=== PATIENT | male | born 1980 | race African-American/Black ===

== ENCOUNTER 2016-09-10 10:05 | Observation (INO) ==
[2016-09-10 10:12] VITALS: BMI 61.9
[2016-09-10] MEDS ORDERED: TYLENOL PO STA ×2 (11:28→11:34)
--- NOTE | 2016-09-10 11:30 | DI ---
EXAM: Chest two view, frontal and lateral views. HISTORY: Cough. COMPARISON: 11/25/2013. FINDINGS: The heart size is normal. There is no pulmonary vascular congestion. The lungs are jeannette r. No pleural effusion or pneumothorax is seen. No acute osseous abnormality identified. Since prior study, there has been no significant interval change. IMPRESSION: No acute cardiopulmonary process.
[2016-09-10 11:31] LABS: BASOPHILS # (AUTO) 0.1 K/uL (0-0.2); BASOPHILS % (AUTO) 0.2 % (0.0-3.0); EOSINOPHILS % (AUTO) 0.2 % (0.0-7.0); HEMOGLOBIN 13.5 g/dl (14.0-18.0); IMMATURE GRANULOCYTE % (AUTO) 0.8 % (0.0-5.0); LYMPHOCYTES # (AUTO) 2.8 K/uL (0.60-3.4); LYMPHOCYTES % (AUTO) 11.5 (10.0-50.0); MEAN CORPUSCULAR HEMOGLOBIN 26.3 pg (27.0-31.0); MEAN CORPUSCULAR HGB CONC 32.1 (31.8-35.4); MEAN CORPUSCULAR VOLUME 81.9 fl (80.0-94.0); MONOCYTES # (AUTO) 1.9 K/uL (0.4-2.0); MONOCYTES % (AUTO) 7.6 (0-10); NEUTROPHILS # (AUTO) 19.6 K/ul (2.0-6.9); NEUTROPHILS % (AUTO) 79.7; PLATELET COUNT 220 10^3/uL (140-440); RED BLOOD COUNT 5.13 10^6/ul (4.70-6.10)
[2016-09-10 11:34] LABS: BILIRUBIN,URINE Negative (NEGATIVE); KETONES,URINE Negative (NEGATIVE); LEUKOCYTE ESTERASE ,URINE Negative (NEGATIVE); NITRITE,URINE Negative (NEGATIVE); PROTEIN,URINE Negative (NEGATIVE); URINE, BLOOD Trace-intact (NEGATIVE)
[2016-09-10 11:37] LABS: ADD URINE MICROSCOPIC YES
[2016-09-10 11:43] LABS: ALBUMIN 3.6 g/dL (3.4-5.0); ALBUMIN/GLOBULIN RATIO 0.97; ANION GAP 13.7; BILIRUBIN,TOTAL 2.14 mg/dL (0.00-1.20); BUN/CREATININE RATIO 10.81; CREATININE 1.11 mg/dL (0.60-1.10); POTASSIUM 3.7 mmol/L (3.5-5.1); TOTAL PROTEIN 7.3 g/dL (6.4-8.2)
[2016-09-10 11:48] LABS: FLU INTERNAL QC INTERNAL QC VALID; RAPID FLU A NEGATIVE (NEGATIVE); RAPID FLU B NEGATIVE (NEGATIVE)
[2016-09-10 11:49] LABS: WHITE BLOOD COUNT 24.62 K/ul (4.2-10.2)
--- NOTE | 2016-09-10 12:20 | ED.PDOC ---
General ED Provider: Dr. TANESHA PATRICK Chief Complaint: Urinary Problem Stated Complaint: dysuria Time Seen by Physician: 10:10 (history through pt and his ) Mode of Arrival: Walk-In Information Source: Patient Exam Limitations: No limitations Primary Care Provider: PRABHJOT GAMINO Nursing and Triage Documentation Reviewed and Agree: Yes Miscellaneous Complaint Exam - Febrile Illness/Adult Complaint/Exam Onset/Duration: fever , chills weaknessx 4 days Symptoms Are: Still present Timing: Constant Episodes Lasting: Days Highest Temperature Recorded: 102.5 Initial Severity: Moderate Current Severity: Mild Alleviating: Reports: None Associated Signs and Symptoms: Reports: Cough, Sore throat, Myalgia Related History: Reports: Similar episode Pseudomonas Risk Factors: Reports: None Serious Bacterial Infection Risk Factors: Reports: None Current Antibiotic Use: No Related Surgical History: None Specific Findings: Absent: Meningeal signs, Diaphoresis, Joint swelling, Erythema, Cellulitis, Lymphadenopathy, Petechiae, CVA tenderness Differential Diagnoses: Bacteremia (viral syndrome) Review of Systems - Review Of Systems Constitutional: Reports: Fever, Malaise, Weakness Eyes: Reports: No symptoms Ears, Nose, Mouth, Throat: Reports: No symptoms Respiratory: Reports: Cough Cardiac: Reports: No symptoms GI: Reports: Nausea : Reports: Dysuria Musculoskeletal: Reports: No symptoms Skin: Reports: No symptoms Neurological: Reports: No symptoms Endocrine: Reports: No symptoms Hematologic/Lymphatic: Reports: No symptoms All Other Systems: Reviewed and Negative Past Medical History - Past Medical History Endocrine: Reports: None Cardiovascular: Reports: Hypertension Respiratory: Reports: None Hematological: Reports: None Gastrointestinal: Reports: None Genitourinary: Reports: None Neuro/Psych: Reports: None Musculoskeletal: Reports: None Cancer: Reports: None Other Pertinent Past Medical History: Obesity, sleep apnea - Surgical History General Surgical History: Reports: None - Family History Family History: Reports: None - Social History Smoking Status: Current some day smoker Hx Substance Use: No Alcohol Screening: Occasionally Physical Exam - Physical Exam Appearance: Well-appearing, No pain distress, Well-nourished Eyes: QIANA, EOMI, Conjunctiva clear ENT: Ears normal, Nose normal, Oropharynx normal Respiratory: Airway patent, Breath sounds clear, Breath sounds equal, Respirations nonlabored Cardiovascular: RRR, Pulses normal, No rub, No murmur GI/: Soft, Nontender, No masses, Bowel sounds normal, No Organomegaly Musculoskeletal: Normal strength, ROM intact, No edema, No calf tenderness Skin: Warm, Dry, Normal color Neurological: Sensation intact, Motor intact, Reflexes intact, Cranial nerves intact, Alert, Oriented Psychiatric: Affect appropriate, Mood appropriate Interpretation - Radiology Interpretation Radiology Interpretation By: Radiologist Radiology Results: No acute changes Critical Care Note - Critical Care Note Total Time (mins): 0 Course - Course Hematology/Chemistry: 09/10/16 11:10 09/10/16 11:10 Orders, Labs, Meds: Lab Review 09/10/16 09/10/16 11:10 11:12 WBC 24.62 H RBC 5.13 Hgb 13.5 L Hct 42.0 MCV 81.9 MCH 26.3 L MCHC 32.1 RDW Coeff of Jeff 14.4 Plt Count 220 Immature Gran % (Auto) 0.8 Neut % (Auto) 79.7 Lymph % (Auto) 11.5 Love % (Auto) 7.6 Eos % (Auto) 0.2 Baso % (Auto) 0.2 Immature Gran # (Auto) 0.2 Neut # 19.6 H Lymph # 2.8 Love # 1.9 Eos # 0.0 Baso # 0.1 Sodium 137 Potassium 3.7 Chloride 100 Carbon Dioxide 27 Anion Gap 13.7 BUN 12 Creatinine 1.11 H Estimated GFR (MDRD) 91.00 BUN/Creatinine Ratio 10.81 Glucose 103 H Lactic Acid 8.3 Calcium 9.0 Total Bilirubin 2.14 H AST 20 ALT 15 Alkaline Phosphatase 86 Total Protein 7.3 Albumin 3.6 Globulin 3.7 Albumin/Globulin Ratio 0.97 Urine Color Dark Urine Clarity Clear Urine pH 7.0 Ur Specific [place] 1.015 Urine Protein Negative Urine Glucose (UA) Negative Urine Ketones Negative Urine Blood Trace-intact Urine Nitrite Negative Urine Bilirubin Negative Urine Urobilinogen 1.0 Ur Leukocyte Esterase Negative Urine Microscopic RBC 0-2 Ur Squamous Epith Cells 0-2 Influenza A (Rapid) Negative Influenza B (Rapid) Negative Orders Category Date Time Status BLOOD CULTURE Stat LAB 09/10/16 11:10 Received CBC W/ AUTO DIFF Stat LAB 09/10/16 11:10 Completed COMPREHENSIVE METABOLIC PANEL Stat LAB 09/10/16 11:10 Completed LACTIC ACID Stat LAB 09/10/16 11:10 Completed MOLECULAR GROUP A STREP Stat LAB 09/10/16 11:12 Results RAPID FLU A/B Stat LAB 09/10/16 11:12 Completed STREP SCREEN Stat LAB 09/10/16 11:12 Results URINALYSIS C & S IF INDICATED Stat LAB 09/10/16 11:12 Completed Acetaminophen [Tylenol] MEDS 09/10/16 11:34 Discontinued 1,500 mg PO ONCE STA CHEST, 2 VIEWS PA & LAT Stat RADS 09/10/16 10:59 Completed Medications Discontinued Medications Generic Name Dose Route Start Last Admin Trade Name Zonia PRN Reason Stop Dose Admin Acetaminophen 1,500 mg 09/10/16 11:34 09/10/16 11:38 Tylenol PO 09/10/16 11:35 1,500 mg ONCE STA Administration Vital Signs: Temp Pulse Resp BP Pulse Ox 09/10/16 10:05 102.5 F H 107 H 20 133/83 96 Departure - Departure Time of Disposition: 12:22 Disposition: HOME SELF-CARE Discharge Problem: Fever with chills, Weakness Instructions: Weakness (ED) Condition: Good Pt referred to PMD for follow-up: No Additional Instructions: Please call your Family Physician as soon as possible to schedule a follow-up appointment. Allergies/Adverse Reactions: Allergies No Known Allergies Allergy (Verified 09/10/16 10:12) Home Medications: Ambulatory Orders Acetaminophen [Tylenol] 650 mg PO Q4H PRN 02/13/16 Ibuprofen [Motrin] 600 mg PO Q6H PRN #30 tablet 02/13/16 Disposition Discussed With: Patient
[2016-09-10] MEDS ORDERED: ZITHROMAX PO STA (12:27)
[2016-09-10] MEDS ORDERED: ROCEPHIN 2 GM in SODIUM CHLORIDE 100 ML IV STA (12:27)
[2016-09-10] MEDS ORDERED: DECADRON 4 MG/ML SDV IV STA (12:27)
[2016-09-10] MEDS ORDERED: ROCEPHIN ONE (12:38)
[2016-09-10] MEDS: SODIUM CHLORIDE 1,000 ML IV SCH ×2 (12:45→23:29)
[2016-09-10] MEDS ORDERED: AUGMENTIN 875-125 MG TAB PO SCH (15:00)
[2016-09-10] MEDS: DUONEB NEB SCH (17:00)
[2016-09-10] MEDS: AUGMENTIN 875-125 MG TAB PO SCH (21:01)
[2016-09-11] MEDS: DUONEB NEB SCH ×3 (00:02→11:14)
[2016-09-11 05:19] LABS: BASOPHILS # (AUTO) 0.1 K/uL (0-0.2); BASOPHILS % (AUTO) 0.2 % (0.0-3.0); HEMATOCRIT 38.4 % (42.0-52.0); HEMOGLOBIN 12.4 g/dl (14.0-18.0); IMMATURE GRANULOCYTE % (AUTO) 0.5 % (0.0-5.0); LYMPHOCYTES # (AUTO) 1.9 K/uL (0.60-3.4); LYMPHOCYTES % (AUTO) 9.7 (10.0-50.0); MEAN CORPUSCULAR HEMOGLOBIN 26.6 pg (27.0-31.0); MEAN CORPUSCULAR HGB CONC 32.3 (31.8-35.4); MEAN CORPUSCULAR VOLUME 82.2 fl (80.0-94.0); MONOCYTES # (AUTO) 1.4 K/uL (0.4-2.0); MONOCYTES % (AUTO) 6.9 (0-10); NEUTROPHILS # (AUTO) 16.6 K/ul (2.0-6.9); NEUTROPHILS % (AUTO) 82.7; PLATELET COUNT 198 10^3/uL (140-440); RED BLOOD COUNT 4.67 10^6/ul (4.70-6.10); WHITE BLOOD COUNT 20.09 K/ul (4.2-10.2)
[2016-09-11 05:38] LABS: ALBUMIN 3.2 g/dL (3.4-5.0); ALBUMIN/GLOBULIN RATIO 0.91; ANION GAP 13.5; BUN/CREATININE RATIO 15.66; CALCIUM 9.1 mg/dL (8.2-10.2); CREATININE 0.83 mg/dL (0.60-1.10); POTASSIUM 3.5 mmol/L (3.5-5.1); TOTAL PROTEIN 6.7 g/dL (6.4-8.2)
[2016-09-11] MEDS: SODIUM CHLORIDE 1,000 ML IV SCH (07:06)
[2016-09-11] MEDS: AUGMENTIN 875-125 MG TAB PO SCH (09:24)
[2016-09-11 11:16] VITALS: BP 134/68; TEMP 97.7
--- NOTE | 2016-09-12 14:25 | PN ---
DATE OF SERVICE: 09/10/16 REASON FOR HOSPITALIZATION: Fever HISTORY OF PRESENT ILLNESS: The patient is a 35 year old male who was recently seen in the office for an upper respiratory infection and was started on the Z-pack and steroids. He went on a trip to [place] and came back still having the cough and congestion, yellow/ green phlegm, headache and today morning he got up and he was having burning urination and started having a fever so he came to the emergency room. He was seen by Dr. Hanson. Temperature 102.5, initial white count was 24,000 with a left shift, BUN and creatinine 1.11, lactic acid negative, Urine is negative, leukocyte esterase is negative, nitrate negative, serology is negative. Chest x-ray was negative for the infection and Dr. Hanson gave dose of the Rocephin and the Azithromycin. In review of the fever of 103 with dehydration the patient is admitted for the observation. CT and the of abdomen and pelvis was not done rule out any source of infection because of the patient' s weight. REVIEW OF SYSTEMS: CONSTITUTIONAL: No night sweats. Weakness and tiredness. No fever or chills. HEENT: Eyes: No visual changes. No eye pain. No eye discharge. ENT: No runny nose. No epistaxis. Sinus drainage. No sore throat. No odynophagia. No ear pain. No congestion. RESPIRATORY: Cough and congestion. No hemoptysis. CARDIOVASCULAR: No angina symptoms. No CHF symptoms. No atypical chest pain for CAD. No palpitations. No shortness of breath. GASTROINTESTINAL: No abdominal pain. No nausea or vomiting. No diarrhea or constipation. No hematemesis. No hematochezia. GENITOURINARY: No urgency. No frequency. No dysuria. No hematuria. No obstructive symptoms. No discharge. No pain. No significant abnormal bleeding. MUSCULOSKELETAL: No musculoskeletal pain. No joint swelling. No arthritis. NEUROLOGICAL: Headache. No neck pain. No syncope. No seizures. No dizziness. PSYCHIATRIC: Not anxious. No depression. No suicidal thoughts. No homicidal thoughts. SKIN: No rash. No lesions. No wounds. ENDOCRINE: No unexplained weight loss. No weight gain. HEMATOLOGIC/LYMPHATIC: No anemia. No purpura. No petechiae. No prolonged or excessive bleeding. No palpable lymph nodes. PHYSICAL EXAMINATION: VITAL SIGNS: Temperature 102.5, pulse 107, respiratory rate 20, oxygen saturation is 96 and blood pressure 133/83 GENERAL: The patient is sitting in the bed, weak looking with frontal sinus tenderness. HEENT: Head normocephalic, atraumatic. Eyes: Extraocular muscles are intact. Pupils are equal, round and reactive to light and accommodation. Ears: No lesions. Nose appeared normal. Throat: No exudate or erythema. Mucosa dry. Morbidly obese, big built almost 6'2" NECK: Supple. No JVD, no carotid bruit. No lymphadenopathy or thyromegaly. LUNGS: Clear to auscultation. Percussion note normal. Chest symmetrical. HEART: S1, S2, no S3. No murmurs. No cyanosis or clubbing. No ascites. Pulses: Dorsalis pedis and posterior tibial pulses +1 to +2 both sides. ABDOMEN: Soft. Nontender. Bowel sounds active. No CVA tenderness. No mass felt. EXTREMITIES: No edema. Full range of motion of all extremities, equal. NEUROLOGIC: No focal deficit. Cranial nerves II through XII are grossly intact. No headache, no double vision or headache. SKIN: Not dry. Intact. Turgor - normal. LYMPHATIC: No palpable lymph nodes/no lymphedema. MUSCULOSKELETAL: Normal joints with no swelling. Muscle tone is normal. LABS: WBC 24.62, hgb 13.5, hct 42.0, plt count 220, sodium 137, potassium 3.7, chloride 100, bicarb 27, BUN 12, creatinne1.12, glucose 103 and total bilirubin is 2.14. Urine is negative, rapid flu is negative. ASSESSMENT: 1. Fever, most likely viral 2. Upper respiratory infection 3. Sinusitis 4. Dehydration 5. Elevated Bilirubin PLAN: 1. Will get a right upper quadrant ultrasound 2. Admit to observation 3. IV fluids at 125ml per hour 4. Tylenol for fever 5. DUO NEBS 6. Augmentin 875-125mg q 8 hours Will follow the patient in daily rounds. MTDD
--- NOTE | 2016-09-25 14:48 | SSS ---
DATE OF SERVICE: 09/11/16 REASON FOR ADMISSION: Observation; Upper respiratory infection HISTORY OF PRESENT ILLNESS: ER doctor; fever, chills and weakness x four days. Coughing and complaints sore throat, positive general malaise REVIEW OF SYSTEMS: CONSTITUTIONAL: No night sweats. Weakness. Fever. HEENT: Eyes: No visual changes. No eye pain. No eye discharge. ENT: No runny nose. No epistaxis. No sinus pain. Sore throat. No odynophagia. No ear pain. No congestion. RESPIRATORY: Cough, no congestion. No hemoptysis. Wheezing. CARDIOVASCULAR: No angina symptoms. No CHF symptoms. No atypical chest pain for CAD. No palpitations. No shortness of breath. GASTROINTESTINAL: No abdominal pain. No nausea or vomiting. No diarrhea or constipation. No hematemesis. No hematochezia. GENITOURINARY: No urgency. No frequency. No dysuria. No hematuria. No obstructive symptoms. No discharge. No pain. No significant abnormal bleeding. MUSCULOSKELETAL: No musculoskeletal pain. No joint swelling. NEUROLOGICAL: Awake, alert, oriented to time, place and person. No headache. No neck pain. No syncope. No seizures. No dizziness. PSYCHIATRIC: Not anxious. No depression. No suicidal thoughts. No homicidal thoughts. SKIN: No rash. No lesions. No wounds. ENDOCRINE: No unexplained weight loss. No weight gain. HEMATOLOGIC/LYMPHATIC: No anemia. No purpura. No petechiae. No prolonged or excessive bleeding. No palpable lymph nodes. PAST HISTORY: Hypertension Sleep apnea Obesity- BMI 61.9 PERSONAL/FAMILY HISTORY/SOCIAL HISTORY: resides at home with spouse. Independent with ADL's. Has C-PAP. Smoker, no alcohol use and no recreational drugs. No Home Health. No Homemaking. PHYSICAL EXAMINATION: GENERAL: The patient is a 35 year old black male. Height 6'2, weight 482 pounds. VITAL SIGNS: Blood pressure 133/83, heart 107, respiratory rate 20, temperature 102.5 and O2Sat 96% on room air. HEENT: Head normocephalic, atraumatic. Eyes: Extraocular muscles are intact. Pupils are equal, round and reactive to light and accommodation. Ears: No lesions. Nose appeared normal. Throat: No exudate or erythema. Pallor positive. NECK: Supple. No JVD, no carotid bruit. No lymphadenopathy or thyromegaly. LUNGS: Clear to auscultation. Percussion note normal. Chest symmetrical. HEART: S1, S2, no S3. No murmurs. No cyanosis or clubbing. No ascites. Pulses: Dorsalis pedis and posterior tibial pulses +1 to +2 both sides. ABDOMEN: Soft. Nontender. Bowel sounds active. No CVA tenderness. No mass felt. EXTREMITIES: No edema. Full range of motion of all extremities, equal. NEUROLOGIC: No focal deficit. Cranial nerves II through XII are grossly intact. No headache, no double vision or headache. Awake, alert and oriented x2. SKIN: Not dry. Intact. Turgor - normal. LYMPHATIC: No palpable lymph nodes/no lymphedema. MUSCULOSKELETAL: Normal joints with no swelling. Muscle tone is normal. Old/present records reviewed: yes. Office records reviewed: yes . EDUCATION CARRIED OUT ABOUT: Vital syndrome Antibiotics Steroid New Medication Activities Follow-up Smoking cessation ALLERGIES: No known drug allergies. MEDICATIONS: Motrin and Tylenol PRN LABS/EKG'S/X-RAY/ECHO/ABG: Chest x-ray- no acute cardiopulmonary process. Urinalysis clear. Flu A&B negative, Strep negative, WBC 24.62, hgb 13.5, hct 42.0 and plt count. Sodium 137, potassium 3.7, chloride 100, bicarb 27, BUN 12, creatinine 1.11 and Glucose 103. Lactic acid 8.3. PROGRESS NOTES: Says feeling "not bad" today. No fever. Sats 99% today. Telemetry sinus rhythm. Whit count 20.09. Had Decadron in ER. DIAGNOSES: 1. Febrile illness 2. Sinusitis frontal 3. Upper respiratory tract infection 4. Hypertension 5. Sleep apnea RECOMMENDATIONS/PLAN: 1. Discharge home today 2. Return to office 5-7 days. Call for followup appointment. 3. RX: Augmentin 875-125mg PO three times a day 4. Phenergan with codeine 6.25/10; 15ml PO Q 6 PRN x 10 days 5. No work until 09/16/16 6. Get plenty of rest at home 7. No smoking. TIME SPENT: More than 70 minutes. MTDD
== END 2016-09-11 12:22 | disposition home or self-care (01) ==
LOC: ED 10:05 → MEDSURG A 12:37
PROVIDERS: ADMIT Emergency Medicine; ATTEND Emergency Medicine
DX: J06.9 Acute upper respiratory infection, unspecified (principal); J01.10 Acute frontal sinusitis, unspecified; R50.9 Fever, unspecified; E86.0 Dehydration; R30.0 Dysuria; E80.7 Disorder of bilirubin metabolism, unspecified; G47.30 Sleep apnea, unspecified; E66.01 Morbid (severe) obesity due to excess calories; F17.210 Nicotine dependence, cigarettes, uncomplicated; Z68.44 Body mass index [BMI] 60.0-69.9, adult
CPT/HCPCS: 36415; 80053; 81001; 83605; 85025; 87040; 87651; 87804; 87880; 94640; 96361; 96365; 96375; 99284